=== PATIENT | female | born 1995 | race Caucasian/White ===

== ENCOUNTER 2022-07-04 16:02 | Outpatient (CLI) | payer BC ==
[~2022-07-04 16:02] MED LIST: Magnevist 469MG/ML 20 ML VIAL ONE
== END 2022-07-04 16:03 | disposition home or self-care (01) ==
LOC: BICRAD 16:02 → BICMRI 16:03
PROVIDERS: ATTEND Specialist
DX: R51.9 Headache, unspecified (principal); Q04.9 Congenital malformation of brain, unspecified
CPT/HCPCS: 70553; A9579